=== PATIENT | male | born 1970 | race Caucasian/White ===

== ENCOUNTER 2025-01-19 03:04 | Emergency (ER) | payer BC, SELFPAY ==
[2025-01-19 03:16] VITALS: BP 141/85
[2025-01-19 03:45] LABS: Hematocrit 46.0 % (39.0-52.0); Hemoglobin 16.1 g/dL (13.0-18.0); Mean Corp Hgb Conc. 35.0 g/dL (33.0-37.0); Mean Corpuscular Volume 85.2 fL (80.0-94.0); Nucleated Red Blood Cells % 0 % (-); Platelet Count 258 10^3/uL (130-400); Red Cell Dist. Width 13.3 % (11.5-14.5)
[2025-01-19 03:50] VITALS: BP 139/95
[2025-01-19 03:51] VITALS: BMI 34.2
[2025-01-19 04:00] VITALS: BP 144/93
[2025-01-19 04:10] LABS: ALT (SGPT) 66 U/L (0-50); AST (SGOT) 58 U/L (17-59); Albumin 4.5 g/dl (3.5-5.0); Alkaline Phosphatase 41 U/L (38-126); Blood Urea Nitrogen 9 mg/dl (9-20); Calcium 9.4 mg/dl (8.4-10.2); Carbon Dioxide 25 mmol/L (22-30); Chloride 103 mmol/L (98-107); Estimated Creatinine Clearance 91 ml/min; Glucose 102 mg/dl (70-99); Potassium 4.1 mmol/L (3.5-5.1); Sodium 135 mmol/L (135-145); Total Protein 7.9 g/dl (6.3-8.2); eGFR > 60.00
[2025-01-19 04:20] LABS: Troponin I 0.020 ng/ml
[2025-01-19 05:39] VITALS: BP 144/93
== END 2025-01-19 05:39 | disposition left against medical advice (07) ==
LOC: EMR 03:04
PROVIDERS: EMERGENCY PHYSICIAN Emergency Medicine
DX: R07.9 Chest pain, unspecified (principal); Z53.21 Procedure and treatment not carried out due to patient leaving prior to being seen by health care provider
CPT/HCPCS: 80053; 84484; 85025; 93005